=== PATIENT | male | born 1990 | race Caucasian/White ===

== ENCOUNTER 2023-07-24 20:32 | Emergency (ER) | payer SELFPAY ==
[~2023-07-24] VITALS: Ht 188 cm; Wt 80.0 kg
[2023-07-24 20:36] VITALS: BP 163/103; RESP 20; TEMP 98.5; O2SAT 100
[2023-07-24 20:45] VITALS: PULSE 115
== END 2023-07-24 22:00 | disposition left against medical advice (07) ==
LOC: ER 20:32
DX: I10 Essential (primary) hypertension (principal); Z53.21 Procedure and treatment not carried out due to patient leaving prior to being seen by health care provider
CPT/HCPCS: 93005; 99281